=== PATIENT | female | born 1950 | race Hispanic/Latino ===

== ENCOUNTER → 2025-07-05 | Outpatient (CLI) | payer MEDICARE, MEDICAID ==
[~2025-07-05] MED LIST: IOHEXOL 350 MG/ML 100ML INFUS..BTL IV ONE
--- NOTE | 2025-07-06 08:16 | HMCIMG ---
EXAM: CT Chest with and without Intravenous Contrast. CT Abdomen and Pelvis with and without Intravenous Contrast CLINICAL HISTORY: MALIGNANT NEOPLASM TECHNIQUE: Axial computed tomography images of the chest, abdomen, and pelvis with and without intravenous contrast. CONTRAST: Iodinated intravenous contrast was given without any incident. COMPARISON: None provided. FINDINGS: CHEST: LUNGS: No pulmonary mass. The lungs appear essentially clear. PLEURAL SPACES: No evidence of pneumothorax. No pleural effusion. HEART: No cardiomegaly. No significant pericardial effusion. LYMPH NODES: No lymphadenopathy is evident. ABDOMEN AND PELVIS: LIVER: Diffuse fatty infiltration of the liver. No focal lesions. GALLBLADDER AND BILE DUCTS: The gallbladder appears within normal limits. No radioopaque gallstones are seen. No biliary ductal dilatation is evident. PANCREAS: Unremarkable. SPLEEN: Unremarkable. ADRENAL GLANDS: Unremarkable. KIDNEYS, URETERS, AND BLADDER: Bilateral renal cortical scarring. Multiple punctate nonobstructing stones in both kidneys. No hydronephrosis or nephrolithiasis. No ureteral or bladder calculi. STOMACH AND BOWEL: Sigmoid colon diverticulosis with no features of acute diverticulitis. Short segment circumferential wall thickening involving the distal sigmoid colon. Unremarkable appearance of the rest of the bowel. No evidence of bowel obstruction. No evidence suggesting enteritis. APPENDIX: No evidence of acute appendicitis on CT examination. PERITONEUM: No free fluid. No free air. REPRODUCTIVE: Unremarkable. LYMPH NODES: No lymphadenopathy is evident. VASCULATURE: No evidence of abdominal aortic aneurysm. BONES: No acute osseous abnormality. Mild anterolisthesis of L4 over L5 vertebra, likely degenerative in etiology. Multilevel degenerative changes in the spine. IMPRESSION: 1. Short segment circumferential wall thickening of the distal sigmoid colon may represent underdistention or neoplasm. 2. Clear lungs. No pulmonary nodules. 3. Bilateral punctate nonobstructing renal stones. No ureteral stones. No hydronephrosis. Bilateral renal scarring. /[place]
== END | disposition home or self-care (01) ==
LOC: RAH 09:20
PROVIDERS: ATTEND Internal Medicine Gastroenterology
DX: C18.7 Malignant neoplasm of sigmoid colon (principal); N20.0 Calculus of kidney; K57.30 Diverticulosis of large intestine without perforation or abscess without bleeding; K76.0 Fatty (change of) liver, not elsewhere classified; M43.16 Spondylolisthesis, lumbar region
CPT/HCPCS: 71270; 74178; Q9967